=== PATIENT | female | born 1995 | race Caucasian/White ===

== ENCOUNTER 2025-01-30 19:49 | Inpatient (IN) | payer MEDICAID ==
[~2025-01-30] VITALS: Ht 165.1 cm; Wt 38.3 kg
--- NOTE | 2025-01-30 20:42 | ELECTROCARDIOGRAPH REPORT ---
[facility] Test Date: 2025-01-30 Test Time: 20:40:44 Pat Name: DAPHNE RICHEY Department: [facility]- Room: [place] [id number] Gender: F Allopathic Doctor: : 1995 Requested By: GERARDO TIAN Order Number: [id number] Reading MD: Dr. Tyron Barrett Measurements Intervals [place] Rate: 110 P: 79 AL: 106 QRS: 84 QRSD: 78 T: 32 QT: 292 QTc: 396 Interpretive Statements Sinus tachycardia Ventricular premature complex Aberrant complex Electronically Signed On 02-02-2025 9:29:[address] Tyron Barrett Please click the below link to view image of tracing.
--- NOTE | 2025-01-30 20:48 | Physician Documentation ---
History of Present Illness ~ Chief Complaint: Bloody Stools Stated Complaint: ABD PAIN Time Seen by MD: 20:15 OK to notify your PCP?: Yes Source: patient Mode of Arrival: POV Exam Limitations: no limitations HPI Heather is a 29-year-old female presenting to our emergency department for history of bright red bloody diarrhea for the past two weeks. She moved back from [facility] 3 weeks ago which she was living there for the past year, She received a colonoscopy two months ago that showed and a e-coli infection for which she was hospitalized and given IV antibiotics for. She states was told she is anemic and was doing iron infusions while in [facility]. She was seen five or six days ago by Martha Plascencia for her same symptoms and was given saline infusion. She states that she has been having high amount of anxiety after being with her mother for the past two weeks and believes that her high heart rate and rectal bleeding is due to the anxiety and colon inflammation. She is requesting steroid to help heal her colon. She has a history of hemorrhoids but states this feels different. She also has a history of ulcerative colitis and Crohn's disease since 2nd grade but has been managing with diet only. LMP 7 months ago. Medication Reconciliation Allergies: Coded Allergies: No Known Drug Allergies (Verified Allergy, Unknown, 01/31/25) codeine (Verified Adverse Reaction, Intermediate, nausea, 01/31/25) Scheduled Cyclobenzaprine* (Cyclobenzaprine*), 1 TAB PO HS, (Reported) Miscellaneous Medications Lorazepam (Ativan), (Reported) Physical Exam Vital Signs: Temperature: 100.0, Source: Oral, Heart Rate: 145, Respiratory Rate: 14, BP: 105/72, Pulse Oximetry: 97, Weight: 38.300 Oxygen Flow Rate: 0 General Appearance: alert, WD/WN, no apparent distress Respiratory: lungs clear Chest: no accessory muscle use Cardiology Exam: regular rate, rhythm, no gallop, no murmur Gastrointestinal: bowels sounds present, tenderness (RLQ and LLQ) Rectal: deferred Neurologic: oriented x4 Psychiatric: normal mood/affect Skin: normal color, warm/dry Progress Results/Orders Reviewed/noted all lab results: Yes Results/Orders Orders - ALEX TIAN Culture Blood (01/30/25 20:34) Ct Abdomen Pelvis (01/30/25 22:45) Cult Stool (Enteric Pathogens) (01/30/25 20:34) Cult Urine + [place] Ct (01/30/25 22:37) Wrights Stain For Stool Wbcs (01/30/25 20:34) Completed Orders - ALEX TIAN Electrocardiogram (01/30/25 20:34) Cbc/Diff (01/30/25 20:34) MG (01/30/25 20:34) Hcg, Ur Ql (01/30/25 20:34) Ct Abdomen Pelvis (01/30/25 22:45) Procalcitonin (01/30/25 20:34) Lacticsepsis (01/30/25 20:34) Normal Saline 1000ml (Sodium Chloride 10 (01/30/25 20:35) Acetaminophen 1,000mg/100ml Iv (Ofirmev (01/30/25 20:35) CMP (01/30/25 20:34) C Diff Toxin (01/30/25 20:34) Hcg Serum Qt (01/30/25 21:00) Iohexol 300mg/Ml 100ml Inj. (Omnipaque-3 (01/30/25 22:24) Ua W/Microscopic, Cult If Ind (01/30/25 21:50) Vital Signs 01/30/25 01/30/25 01/30/25 01/30/25 19:52 20:09 21:06 21:08 Temp 100.0 100.0 100.0 Pulse 148 145 115 Resp 16 14 14 14 B/P (MAP) 108/70 105/72 (83) 106/61 (76) Pulse Ox 99 97 97 O2 Flow Rate 0 0 0 01/30/25 01/30/25 22:07 23:33 Temp 100.0 100.0 Pulse 96 96 Resp 14 14 B/P (MAP) 99/6 (37) 103/73 (83) Pulse Ox 97 97 O2 Flow Rate 0 0 Laboratory Tests Test 01/30/25 21:00 01/30/25 21:50 White Blood Count 15.1 H Red Blood Count 4.59 Hemoglobin 10.5 L Hematocrit 32.6 L Mean Corpuscular Volume 70.9 L Mean Corpuscular Hemoglobin 22.8 L Mean Corpuscular Hemoglobin Concent 32.1 L Red Cell Distribution Width 20.2 H Platelet Count 759 H Mean Platelet Volume 7.0 L Neutrophils (%) (Auto) 74.1 Lymphocytes (%) (Auto) 17.6 L Monocytes (%) (Auto) 6.9 Eosinophils (%) (Auto) 0.6 Basophils (%) (Auto) 0.8 Neutrophils # (Auto) 11.2 H Lymphocytes # (Auto) 2.7 Monocytes # (Auto) 1.1 H Eosinophils # (Auto) 0.1 Basophils # (Auto) 0.1 CBC Comment Platelet Estimate Increased Red Blood Cell Morphology Perf Basophilic Stippling Anisocytosis 2+ Microcytosis 1+ Sodium Level 138 Potassium Level 3.4 L Chloride Level 100 Carbon Dioxide Level 24.5 Anion Gap 14 Blood Urea Nitrogen 6 L Creatinine 0.58 Estimated GFR/1.73 m2 > 90 BUN/Creatinine Ratio 10.3 Glucose Level 115 H Lactic Acid Level 1.2 Calcium Level 8.3 L Magnesium Level 1.9 Total Bilirubin 0.3 Aspartate Amino Transf (AST/SGOT) 15 Alanine Aminotransferase (ALT/SGPT) 10 L Alkaline Phosphatase 118 H Total Protein 7.0 Albumin 2.3 L Globulin 4.7 H Albumin/Globulin Ratio 0.5 L Procalcitonin 0.06 HCG Beta Subunit < 1.0 Chemistry Comments Urine Specimen Description Cln catch midstream Urine Color Yellow Urine Clarity Clear Urine pH 6.0 Urine Specific [place] 1.010 Urine Protein Negative Urine Glucose (UA) Negative Urine Ketones Trace H Urine Occult Blood Trace-intact Urine Nitrite Negative Urine Bilirubin Negative Urine Urobilinogen 0.2 Urine Leukocyte Esterase Moderate H Urine RBC None seen Urine WBC 20-30 H Urine Squamous Epithelial Cells Few Urine Bacteria 1+ Urine Mucus Few Urine Culture Indicated Indicated Volume Urine Centrifuged 10 ml Urine HCG, Qualitative Negative Urine Comment Microbiology Date/Time Source Procedure Growth Status 01/30/25 22:37 Urine Clean Catch Midstream Urine Culture - Preliminary Culture received. Resulted 01/30/25 21:59 Blood Arm Left Blood Culture - Preliminary NEGATIVE (LESS THAN 24 HOURS) Resulted EKG/XRAY/CT/US/VASC/MRI EKG : Intepreting Monitor?: Yes Additional Comment Twelve lead EKG interpreted by me: Sinus tachycardia, rate 110. no ST- elevation, no axis deviation, no pre-excitation. OTc 396. Medical Decision Making Findings This is a 29-year-old female presenting to our emergency department for rectal bleeding of bright red diarrhea x2 weeks. Her labs are negative for electrolyte imbalance, severe blood loss, kidney dysfunction or liver dysfunction. Her CBC demonstrates leukocytosis of unknown origin at this time and mild iron- deficiency anemia. Her CT scan is pending. Her UA is positive for a UTI. The patient was pending a CT abdomen and pelvis with IV contrast. I am going off duty and endorsed the patient over to Dr. Raven Estes Diff Dx GI Bleed:Consideration: Include: Blood loss anemia, Diverticulosis, Diverticulitis, Gastritis, Inflammatory BD Additional Comments ulcerative colitis, crohns disease. Departure Time of Disposition: 00:44 Disposition: ADMITTED INPATIENT Admitted to Inpatient Unit: yes, to hospitalist Admission Level of Care: PCU with Tele Impression: Primary Impression: Hemorrhagic colitis Additional Impressions: UTI (urinary tract infection) Qualified Codes: N39.0 - Urinary tract infection, site not specified Inflammatory bowel disease Liver mass Condition: Stable Referrals: NO PRIMARY CARE PROVIDER (PCP) Additional Comment Additional Comment Pt signed out to me at 12:[address] result became available. Abx and pain medication ordered. Covered for C diff colitis given pseudomembranous appearance on CT -- will need G(-) coverage for UTI as well, and potentially broader coverage for possible bacterial colitis, although IBD flare more likely. Had already received IVF resuscitation. Hospitalist service paged for admission and immediately wrote admitting orders and came to see patient. Pt to be seen by her Hospitalist attending as well, who is from the critical care service. Harris Estes MD Signature Scribe Signature: no scribe Attestation: The note accurately reflects work and decisions made by me.Alex CALDWELL 01/31/25 18:33 JEOVANNY PLUNKETT Jan 30, 2025 20:48 RAVEN ESTES MD Jan 31, 2025 00:49 ALEX TIAN Jan 31, 2025 18:33
[2025-01-30] MEDS: acetaminophen 1,000mg/100ml IV 100 ML IV ONE (21:02)
[2025-01-30] MEDS: normal saline 1000ml 1,000 ML IV ONE (21:02)
[2025-01-30 21:27] LABS: BASOPHILS # (AUTO) 0.1 X10'3 (0-0.2); BASOPHILS % (AUTO) 0.8 % (0-1); EOSINOPHILS # (AUTO) 0.1 X10'3 (0-0.9); HEMOGLOBIN 10.5 g/dl (12.0-16.0)
[2025-01-30 21:28] LABS: EOSINOPHILS % (AUTO) 0.6 % (0-6); HEMATOCRIT 32.6 % (35.0-45.0); LYMPHOCYTES # (AUTO) 2.7 X10'3 (1.1-4.8); LYMPHOCYTES % (AUTO) 17.6 % (21-51); MEAN CORPUSCULAR HEMOGLOBIN 22.8 PG (27.0-31.0); MEAN CORPUSCULAR HGB CONC 32.1 g/dL (33.0-36.5); MEAN CORPUSCULAR VOLUME 70.9 FL (78-98); MONOCYTES # (AUTO) 1.1 X10'3 (0-0.9); MONOCYTES % (AUTO) 6.9 % (2-12); NEUTROPHILS # (AUTO) 11.2 X10'3 (1.8-7.7); NEUTROPHILS % (AUTO) 74.1 % (42-75); PLATELET COUNT 759 X10'3 (140-440); RED BLOOD COUNT 4.59 X10'6 (4.20-5.60); RED CELL DISTRIBUTION WIDTH 20.2 % (11.5-14.5); WHITE BLOOD COUNT 15.1 X10'3 (4.5-11.0)
[2025-01-30 21:37] LABS: ALANINE AMINOTRANSFERASE 10 U/L (12-78); ALBUMIN 2.3 G/DL (3.4-5.0); ALBUMIN/GLOBULIN RATIO 0.5 (1.1-1.5); ALKALINE PHOSPHATASE 118 IU/L (46-116); ANION GAP 14 (8-16); ASPARTATE AMINO TRANSFERASE 15 U/L (10-37); BILIRUBIN,TOTAL 0.3 MG/DL (0.1-1.0); BLOOD UREA NITROGEN 6 MG/DL (7-18); BUN/CREATININE RATIO 10.3 (10.0-20.0); CALCIUM 8.3 MG/DL (8.5-10.1); CHLORIDE 100 MMOL/L (99-107); CREATININE 0.58 MG/DL (0.40-0.90); GLUCOSE 115 MG/DL (70-104); MAGNESIUM 1.9 MG/DL (1.5-2.4); SODIUM 138 MMOL/L (135-145); TOTAL CARBON DIOXIDE 24.5 MMOL/L (24-32); eCRCL 86 ML/MIN; eGFR > 90 ML/MIN
[2025-01-30 21:41] LABS: POTASSIUM 3.4 MMOL/L (3.5-5.1)
[2025-01-30 21:49] LABS: PLATELET ESTIMATE INCREASED
[2025-01-30 21:50] LABS: MICROCYTOSIS 1+
[2025-01-30 21:52] LABS: ANISOCYTOSIS 2+
[2025-01-30 22:17] LABS: URINE HCG NEGATIVE (NEG)
[2025-01-30] MEDS ORDERED: iohexol 300mg/ml 100ml inj. ONE (22:24)
[2025-01-30 22:27] LABS: BILIRUBIN,URINE NEGATIVE (Neg); CLARITY,URINE CLEAR (Clear); COLOR,URINE YELLOW (Yellow); GLUCOSE, URINE NEGATIVE (Neg); KETONES,URINE TRACE mg/dl (Neg); LEUKOCYTE ESTERASE ,URINE MODERATE (Neg); NITRITES, URINE NEGATIVE (Neg); OCCULT BLOOD,URINE TRACE-INTACT (Neg); PROTEIN,URINE NEGATIVE (Neg); UROBILINOGEN,URINE 0.2 E.U/dL (0.2-1.0)
[2025-01-30 22:28] LABS: UA COLLECTION TYPE CLN CATCH MIDSTREAM
[2025-01-30 22:32] LABS: BETA HCG,QUANTITATIVE < 1.0 mIU/ml
[2025-01-30 22:35] LABS: WBC,URINE 20-30 /HPF (0-4)
[2025-01-30 22:36] LABS: BACTERIA,URINE 1+ /HPF (Neg); MUCUS STRANDS FEW /LPF (Neg); RBC,URINE NONE SEEN /HPF (0-2); SQUAMOUS EPITHELIAL CELL,UR FEW /LPF (FEW)
[2025-01-31] VITALS (8 sets, daily range): BP systolic 91–124; BP diastolic 50–77; PULSE 73–99; RESP 14–18; TEMP 97.6–97.8; O2SAT 95–100
--- NOTE | 2025-01-31 00:22 | RADIOLOGY REPORT ---
Clinical History Sepsis, BLOODY STOOLS X 2 WEEKS, HX OF COLITIS Comparison None Technique: All CT scans at this medical facility are performed using dose modulation techniques as appropriate t o a performed exam including the following: Automated exposure control was utilized; adjustment of th e mA and/or kV according to patient size; and use of iterative reconstruction technique. All CT studies are reported to the Dose Index Registry of the [employer]. Contrast: omni 300 100ml Radiation Dose: CTDI (mGy): 6.23; DLP (mGy-cm): 290.40 DAPHNE RICHEY, [id number] FINDINGS: Lower chest: Unremarkable Liver: 3.7 x 3.2 cm right hepatic lobe mass with peripheral enhancement, correlation with nonemergent triple phase contrast-enhanced CT/MRI is recommended to assess for hemangioma enhancement pattern an d exclude other neoplastic processes. Right hepatic cyst Gallbladder: Unremarkable Pancreas: Unremarkable Spleen: Unremarkable Adrenals:Unremarkable Kidneys: Unremarkable Stomach:Unremarkable Bowel:Evaluation of the bowel is limited and incomplete due to lack of oral contrast. The small tere l is grossly unremarkable. Diffuse mural thickening of the colon with pericolonic edema and strandin g of. Normal appendix Urinary bladder:Unremarkable Reproductive organs:No pelvic masses Peritoneum, retroperitoneum, lymphadenopathy:Unremarkable Vascular structures: Hypodense varices are seen protruding through the anus Abdominal wall:Unremarkable Musculoskeletal:No acute osseous abnormality IMPRESSION: Pancolitis with an appearance suggestive of pseudomembranous colitis, clinical correlation is recomme nded Hypodense varices are seen herniating through the anus This report was electronically signed by Elton Cazares MD on 01/31/2025 12:20:04 AM.
[2025-01-31] MEDS ORDERED: magnesium sulf-water 2g/50mL 50 ML IV PRN (00:50)
[2025-01-31] MEDS ORDERED: magnesium Cl slow-release 64mg tablet PO PRN (00:50)
[2025-01-31] MEDS ORDERED: morphine 2 MG/ML inj. syringe IV PRN (00:50)
[2025-01-31] MEDS ORDERED: mag hydrox/Alum hydrox/simeth 30ml oral suspension PO PRN (00:50)
[2025-01-31] MEDS ORDERED: acetaminophen 650mg rectal suppository RC PRN (00:50)
[2025-01-31] MEDS ORDERED: magnesium hydroxide 30ml (MOM) UD suspension PO PRN (00:50)
[2025-01-31] MEDS ORDERED: potassium Cl 40MEQ/1/2NS 520ml 520 ML IV PRN (00:50)
[2025-01-31] MEDS ORDERED: magnesium sulf-water 4G/100mL 100 ML IV PRN (00:50)
[2025-01-31] MEDS: ondansetron/PF 4mg/2ml inj IV PRN (01:05)
[2025-01-31] MEDS: HYDROcodone/acetaminophen 5mg/325mg tablet PO PRN (01:06)
[2025-01-31] MEDS ORDERED: CYCL-1 PO (01:46)
[2025-01-31] MEDS ORDERED: LORA-269 (01:46)
--- NOTE | 2025-01-31 02:10 | HISTORY AND PHYSICAL-Residence ---
History & Physical Providers to CC Resident Creating Document: LYNN RODRIGUEZ, ALYX ~ History of Present Illness Reason for Admit\Complaint: Bloody diarrhea History of Present Illness This is a 29-year-old female with a history of ulcerative colitis, E coli infection, C diff, Crohn's disease, hemorrhoids presents to the ED chief complaint of diarrhea with bright red stools since the last two weeks. She was about 3-4 episodes of watery bloody mucousy diarrhea and has stopped eating since the last 5-6 days. She also feels dizzy but did not have a syncopal attack or vomiting. She denies any fever but her temperature was 100 F in the ED. Patient mentions that she recently returned from [facility] three weeks ago and has been in a stressful environment living along with her mother in [place]. She underwent colonoscopy in [facility] three months ago and she was treated for ulcerative colitis. She was treated for steroids for six days followed by two weeks of taper, UC flare has been completely resolved and she has been doing pain until she [place] the [place] ago. She was tried on rheumera(methotrexate), Cimzia( certolizumab), Remicade( infliximab) in the past for ulcerative colitis which has not helped and she was not willing to take them again now. She was unsure about the number of flares of UC per year but her last flare was three months ago in [facility]. She was diagnosed with ulcerative colitis and Crohn's disease in 4th grade. She has a GI doctor and [facility] was name is Jarett Gómez and she saw him one and half year ago. She mentions that her mother is evil and the food she eats is poisoned. She currently does not take any medications. She denies any recent antibiotic use but mentions that she was got C diff in the past after taking antibiotics. She did not comment about any burning in the micturition or increased frequency. She also mentions that she has been resuscitated twice in the past and had history of E coli infection one and half year ago. Allergies: Coded Allergies: codeine (Verified Allergy, Intermediate, nausea, 01/30/25) Home Medications Home Medications Active Reported Cyclobenzaprine* (Cyclobenzaprine HCl) 10 Mg Tablet 1 Tab PO HS Ativan (Lorazepam) 1 Mg Tablet Past Medical History Past Medical History Ulcerative colitis, E coli infection, C diff, Crohn's disease, hemorrhoids Past Surgical History Surgical History Comment None Past Social History Social History Comment Smokes marijuana but denies any tobacco, alcohol, drug use ROS ROS Reviewed and negative except for the pertinent positives in HPI Exam Vitals: Vital Signs Date Time Temp Pulse Resp B/P (MAP) Pulse Ox O2 Delivery O2 Flow Rate FiO2 01/30/25 23:33 100.0 96 14 103/73 (83) 97 0 General: General: well developed, well nourished. Awake , alert, and oriented x4, resting comfortably in the bed, in no acute distress . HEENT: Atraumatic, normocephalic, EOMI, anicteric sclera B; pink conjunctiva; PERRLA, normal oropharynx, moist oral and nasal mucosa. Tympanic membrane , nose , throat clear. Neck: Trachea midline. Supple, full range of motion, no JVD, bruit , hepatojugular reflex , lymphadenopathy or masses, or other lesions Cardiac: Regular rhythm, regular rate no murmurs, rubs, or gallops. Normal S1 and S2, no S3 noticed. PMI is normal. Respiratory: Equal breath sounds bilaterally, no tachypnea; lungs clear to auscultation bilaterally, no wheezing ,rub or rales, or crackles. Chest wall is symmetric and without deformity. No signs of trauma. Chest wall is nontender. No signs of respiratory distress. Resonance is normal upon percussion bilaterally. Gastrointestinal: Abdomen symmetric, non-distended, soft, tender to palpation in the lower abdominal quadrants, normal bowel sounds x4 quadrant, normoactive, no hepatosplenomegaly , no masses , no bruit, no flank pain bilaterally. No voluntary guarding, rebound, or rigidity. No tenderness to percussion. No pulsatile masses. Equal femoral pulses. No Jiménez's sign or McBurney point tenderness. Back; no CVA tenderness bilaterally, no deformities. Neck and back are without deformity as well. No tenderness noted on palpation of the spinous processes. Spinous processes are midline. Cervical, thoracic, and lumbar paraspinal muscles are not tender and are without spasm. : normal external genitalia, without lesions, swelling, masses or tenderness. Musculoskeletal: Extremities, normal range of motion, non-tender, muscle strength 5/5 x 4. Negative Homans signs bilaterally on lower extremity. Distal pulses full symmetrical, no clubbing, cyanosis , edema. Neurological: Speech is clear, alert, and oriented x 4. No motor or sensory deficit, deep tendon reflexes normal, cerebellar intact. Cranial nerves II-XII intact. Psych: Alert and or appropriate, normal affect. Vascular: Good distal pulses, which are equal x4; capillary refill less than 2 seconds. Skin: Warm, dry, no pallor, no rash or petechiae. Diagnostic Data Last Recorded Lab Results: 01/30/25209901/30/252099 Diagnostic Data: Laboratory Tests Test 01/31/25 01:48 Coagulation Comments Advance Care Planning Advanced Care plannin - 30 Minutes (I spent a total of 17 minutes on reviewing various resuscitative measures/ ACP with the patient at the time of admission. The patient has decided on a full code status) Additional Plan Bloody diarrhea possible secondary to ulcerative colitis flare Jose colitis with pseudomembranous colitis C diff can not be ruled out Anal varices History of E coli infection Hepatic cyst, can not rule out hemangioma Moderate protein calorie malnutrition Patient presents to the ED with bloody diarrhea. She also has fever with a temperature of 100, blood pressure is soft around 100/70 mmHg and she was tachycardic with heart rate of 148 at admission. She received Tylenol in 1 L NS bolus. Laboratory data was significant [place] [address], hemoglobin of 10.5 and MCV of 70.9, thrombocytosis with platelet count of 759 K. monitor H&H Q 8 hours. Her lactic acid was normal but her procalcitonin was psych elevated at 0.06 and ALP slightly elevated at 118 she also has an albumin of 2.3 and BMI of 14.1. CT of the abdomen shows 3.7 x 3.2 cm right hepatic lobe mass with peripheral enhancement, correlation with nonemergent triple phase contrast-enhanced CT/MRI is recommended to assess for hemangioma enhancement pattern and exclude other neoplastic processes. Right hepatic cyst. Evaluation of the bowel is limited and incomplete due to lack of oral contrast. The small bowel is grossly unremarkable. Diffuse mural thickening of the colon with pericolonic edema and stranding of. Hypodense varices are seen protruding through the anus. Pancolitis with an appearance suggestive of pseudomembranous colitis, clinical correlation is recommended. GI consult in the a.m. for further recommendations and possible colonoscopy. NPO for now as the patient does not want to eat food for now. One dose of oral fidaxomicin for suspected C diff. stool sample sent for C diff toxin. Follow up and continue vancomycin/fidaxomicin as needed. Involve ID doctor if needed. CRP and fecal calprotectin are also ordered to confirm UC flare. Stool ova, parasites and cultures to rule out other causes of bloody diarrhea. Follow-up. Started on oral mesalamine, rectal mesalamine and rectal hydrocortisone suppositories. One dose of oral prednisone 20 mg given. Continue fluids NS at the rate of 100 mL/hour. Taper oral prednisone at discharge based on GI recommendations. UA shows 20-30 WBC with moderate high leukocyte esterase. Not starting on any antibiotics in the view of suspected C diff as of now. Code Status: Full code DVT Prophylaxis: Subcutaneous heparin Analgesia/Sedation: [place], morphine p.r.n. Lines/Tubes: PIV Gi Prophylaxis: None Nutrition: NPO for now PT: Yes Prognosis: Guarded Disposition: Admit to PCU. 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 Attestation of HP only, care immediately directed to hospitalist team 1: Diarrhea 2: hx UC possible UC flair - Steroids, all she will take. - Stool O&P, Cdiff - Needs maintance medication (mesalamine vs juan antonio - Kiersten for dvt proph Patient seen through remote audiovisual assessment through HIPAA compliant setup. All labs, flowsheets, and images reviewed. Alem Butler DO Date of Service: Jan 31, 2025 Billing Provider: ALEM BUTLER Jr., DEEPIKA BANDI, RES Jan 31, 2025 02:10 ALEM BUTLER Jr., DO Jan 31, 2025 04:07
[2025-01-31 02:11] LABS: APTT 30 SECONDS (22-32); INR 1.1 INR; PROTHROMBIN TIME 11.4 SECONDS (9.0-12.0)
[2025-01-31] MEDS: mesalamine 1.2gm ER tablet PO SCH (02:11)
[2025-01-31] MEDS: hydrocortisone acetate 25mg rectal suppository RC SCH (02:12)
[2025-01-31 02:20] LABS: MAGNESIUM 1.8 MG/DL (1.5-2.4); POTASSIUM 3.4 MMOL/L (3.5-5.1)
[2025-01-31] MEDS: mesalamine 1000mg rectal suppository RC SCH (02:30)
[2025-01-31] MEDS: predniSONE 20 mg tablet PO ONE (02:48)
[2025-01-31] MEDS: normal saline 1000ml 1,000 ML IV SCH (02:49)
[2025-01-31] MEDS: LORazepam 1 MG tablet PO PRN (03:33)
[2025-01-31] MEDS: metoclopramide 5 mg/ml inj IV PRN (03:33)
[2025-01-31] MEDS: docusate sod 100mg capsule PO SCH (08:00)
[2025-01-31] MEDS: K and/or MAG REPLACEMENT MC SCH (08:00)
[2025-01-31] MEDS: predniSONE 20 mg tablet PO SCH (08:40)
[2025-01-31] MEDS: potassium Cl 20 mEq SR tablet PO PRN (08:41)
[2025-01-31 09:37] LABS: C DIFF ANTIGEN NEGATIVE (NEGATIVE); C DIFF SPECIMEN=DIARRHEA? ACCEPTABLE; C DIFFICILE TOXINS A&B NEGATIVE (Neg)
[2025-01-31] MEDS: HYDROmorphone inj. 0.5 MG/0.5 ML DISP.SYRIN IV PRN (11:23)
--- NOTE | 2025-01-31 11:40 | PROGRESS NOTE ---
Clinical Note Clinical Note Progress Note: Patient came in with 2 week mucous diarrhea after being diagnosed with UC in [facility] where she underwent colonoscopy and treated with steroid and mesalamine. C.diff resulted negative and started on empirical Zosyn for pancolitis and UTI. Spoke to GI Dr. Menchaca who recommends continue IVF and to await stool culture and to consider discontinuing abx if E. coli results positive, then contraindicated. Also recommends discontinuing steroid for now. Pending stool culture. Diagnosis # Pancolitis # UTI # Sepsis 2/2 pancolitis and UTI - POA bolus IVF and Zosyn today, await stool culture # Microcytic anemia - follow ferritin # Hypokalemia # Hx UC- continue mesalamine, hold steroid per GI recommendation # Hx E.coli # Hx C.diff MARCIA NEWTON PREPARING BOX TENDER Jan 31, 2025 11:40
[2025-01-31] MEDS: normal saline 1000ml 1,000 ML IV ONE ×2 (12:34→14:57)
[2025-01-31 14:52] LABS: URINE AMPHETAMINE SCREEN NEGATIVE (Neg); URINE BARBITUATE SCREEN NEGATIVE (Neg); URINE BENZODIAZEPINES SCREEN NEGATIVE (Neg); URINE CANNABINOID SCREEN POSITIVE (Neg); URINE COCAINE SCREEN NEGATIVE (Neg); URINE METHADONE SCREEN NEGATIVE (Neg); URINE OPIATE SCREEN POSITIVE (Neg); URINE PHENCYCLIDINE SCREEN NEGATIVE (Neg)
[2025-01-31] MEDS: LORazepam 1 MG tablet PO ONE (18:02)
[2025-02-01] MEDS: LORazepam 1 MG tablet PO PRN ×2 (07:30→21:54)
[2025-02-01 08:00] VITALS: RESP 16; O2SAT 98
[2025-02-01 09:05] LABS: BASOPHILS % (AUTO) 0.5 % (0-1); EOSINOPHILS # (AUTO) 0.1 X10'3 (0-0.9); EOSINOPHILS % (AUTO) 1.2 % (0-6); HEMOGLOBIN 9.6 g/dl (12.0-16.0); LYMPHOCYTES # (AUTO) 2.1 X10'3 (1.1-4.8); LYMPHOCYTES % (AUTO) 21.2 % (21-51); MEAN CORPUSCULAR HEMOGLOBIN 23.1 PG (27.0-31.0); MEAN CORPUSCULAR VOLUME 72.2 FL (78-98); MEAN PLATELET VOLUME 6.9 FL (7.4-10.4); MONOCYTES # (AUTO) 0.7 X10'3 (0-0.9); MONOCYTES % (AUTO) 7.4 % (2-12); NEUTROPHILS % (AUTO) 69.7 % (42-75); PLATELET COUNT 700 X10'3 (140-440); RED BLOOD COUNT 4.15 X10'6 (4.20-5.60); RED CELL DISTRIBUTION WIDTH 19.8 % (11.5-14.5)
[2025-02-01 09:18] LABS: ALANINE AMINOTRANSFERASE 15 U/L (12-78); ALBUMIN 2.1 G/DL (3.4-5.0); ALBUMIN/GLOBULIN RATIO 0.5 (1.1-1.5); ALKALINE PHOSPHATASE 99 IU/L (46-116); ANION GAP 7 (8-16); ASPARTATE AMINO TRANSFERASE 7 U/L (10-37); BILIRUBIN,TOTAL 0.2 MG/DL (0.1-1.0); BLOOD UREA NITROGEN 2 MG/DL (7-18); BUN/CREATININE RATIO 3.4 (10.0-20.0); CALCIUM 8.3 MG/DL (8.5-10.1); CHLORIDE 109 MMOL/L (99-107); CREATININE 0.58 MG/DL (0.40-0.90); GLUCOSE 68 MG/DL (70-104); MAGNESIUM 1.7 MG/DL (1.5-2.4); POTASSIUM 3.7 MMOL/L (3.5-5.1); SODIUM 142 MMOL/L (135-145); TOTAL CARBON DIOXIDE 25.7 MMOL/L (24-32); TOTAL PROTEIN 6.2 G/DL (6.4-8.2); eCRCL 86 ML/MIN; eGFR > 90 ML/MIN
[2025-02-01 10:00] VITALS: BP 110/67; PULSE 90; RESP 14; TEMP 98.5; O2SAT 97
[2025-02-01 10:40] LABS: ANISOCYTOSIS 3+; MICROCYTOSIS 1+; PLATELET ESTIMATE INCREASED
[2025-02-01 10:42] LABS: ELLIPTOCYTES 1+
[2025-02-01] MEDS: dextrose 50%-water 50ml dispensing syringe IV ONE ×3 (15:17→21:56)
--- NOTE | 2025-02-01 17:21 | PROGRESS NOTE ---
Daily Progress Note Providers to CC ~ chief complaint, abdominal pain still continue, respond to Dilaudid Central Line/PICC still needed: No James-Non Protocol James Indications Met/Not Met: F/C Indications Not Met Antibiotic Timeout Antibiotic Ordered?: Yes MRSA Education MRSA Education Provided to pt: Yes Subjective As above Objective Vital Signs Date Time Temp Pulse Resp B/P (MAP) Pulse Ox O2 Delivery O2 Flow Rate FiO2 02/01/25 14:12 15 02/01/25 10:00 98.5 90 110/67 (81) 97 Room Air 01/31/25 01:19 0 Vital signs, stable ,afebrile. Pulse Oximetry reflects adequate oxygenation. BMI is General: well developed, well nourished. Awake , alert, and oriented x4, resting comfortably in the bed, in no acute distress . Skin: Warm, dry, no pallor, no rash or petechiae. HEENT: Atraumatic, normocephalic, EOMI, anicteric sclera B; pink conjunctiva; PERRLA, normal oropharynx, moist oral and nasal mucosa. Tympanic membrane , nose , throat clear. Neck: Trachea midline. Supple, full range of motion, no JVD, bruit , hepatojugular reflex , lymphadenopathy or masses, or other lesions Cardiac: Regular rhythm, regular rate no murmurs, rubs, or gallops. Normal S1 and S2, no S3 noticed. PMI is normal. Respiratory: Equal breath sounds bilaterally, no tachypnea; lungs clear to auscultation bilaterally, no wheezing ,rub or rales, or crackles. Chest wall is symmetric and without deformity. No signs of trauma. Chest wall is nontender. No signs of respiratory distress. Resonance is normal upon percussion bilaterally. Gastrointestinal: Abdomen symmetric, non-distended, soft, mildly tender to palpation infraumbilically, normal bowel sounds x4 quadrant, normoactive, no hepatosplenomegaly , no masses , no bruit, no flank pain bilaterally. No voluntary guarding, rebound, or rigidity. No tenderness to percussion. No pulsatile masses. Equal femoral pulses. No Jiménez's sign or McBurney point tenderness. Back; no CVA tenderness bilaterally, no deformities. Neck and back are without deformity as well. No tenderness noted on palpation of the spinous processes. Spinous processes are midline. Cervical, thoracic, and lumbar paraspinal muscles are not tender and are without spasm. Musculoskeletal: Extremities, normal range of motion, non-tender, muscle strength 5/5 x 4. Negative Homans signs bilaterally on lower extremity. Distal pulses full symmetrical, no clubbing, cyanosis , edema. Neurological: Speech is clear, alert, and oriented x 4. No motor or sensory deficit, deep tendon reflexes normal, cerebellar intact. Cranial nerves II-XII intact. Psych: Alert and or appropriate, normal affect. Vascular: Good distal pulses, which are equal x4; capillary refill less than 2 seconds. Lymphatic, no lymphadenopathy. Result Diagram: 02/01/25 0836 02/01/25 0836 Coagulation Studies Laboratory Tests Test 01/31/25 01:48 Prothrombin Time 11.4 SECONDS (9.0-12.0) INR International Normalized Ratio 1.1 INR Activated Partial Thromboplast Time 30 SECONDS (22-32) Coagulation Comments Problem\Assessment\Plan Assessment/plan Patient came in with 2 week mucous diarrhea after being diagnosed with UC in [facility] where she underwent colonoscopy and treated with steroid and mesalamine. C.diff resulted negative and started on empirical Zosyn for pancolitis and UTI. Spoke to GI Dr. Menchaca who recommends continue IVF and to await stool culture and to consider discontinuing abx if E. coli results positive, then contraindicated. Also recommends discontinuing steroid for now. Pending stool culture. Diagnosis # Pancolitis # UTI # Sepsis 2/2 pancolitis and UTI - POA bolus IVF and Zosyn today, await stool culture # Microcytic anemia - follow ferritin # Hypokalemia # Hx UC- continue mesalamine, hold steroid per GI recommendation # Hx E.coli # Hx C.diff DVT gastropathy prophylaxis addressed Sepsis Screening Reassessment Date: Feb 01, 2025 Date of Service: Feb 01, 2025 Billing Provider: SONI MARROQUIN MD Common Visit Codes: [id number] INP/OBS CARE(HIGH) SONI MARROQUIN MD Feb 01, 2025 17:21
[2025-02-01 18:00] VITALS: BP 96/63; PULSE 107; RESP 12; TEMP 98.2; O2SAT 99
[2025-02-01 19:00] VITALS: RESP 18; O2SAT 100
[2025-02-01] MEDS: cyclobenzaprine 10mg tablet PO SCH (20:40)
[2025-02-01] MEDS ORDERED: sodium chloride inj. 154 MEQ in Dextrose 10%-water IV solution 961.5 ML IV SCH (21:50)
[2025-02-01 22:00] VITALS: BP 119/70; PULSE 110; RESP 16; TEMP 98.9; O2SAT 98
[2025-02-01] MEDS: Dextrose 10%-water IV solution 1,000 ML IV SCH (23:00)
[2025-02-02] VITALS (9 sets, daily range): BP systolic 94–120; BP diastolic 49–72; PULSE 82–130; RESP 16–19; TEMP 97.7–100.7; O2SAT 99–100
[2025-02-02 05:30] LABS: EOSINOPHILS # (AUTO) 0.1 X10'3 (0-0.9); LYMPHOCYTES # (AUTO) 1.9 X10'3 (1.1-4.8); MONOCYTES # (AUTO) 0.9 X10'3 (0-0.9)
[2025-02-02 05:33] LABS: BASOPHILS % (AUTO) 0.4 % (0-1); HEMATOCRIT 28.9 % (35.0-45.0); HEMOGLOBIN 9.6 g/dl (12.0-16.0); LYMPHOCYTES % (AUTO) 19.7 % (21-51); MEAN CORPUSCULAR HEMOGLOBIN 23.4 PG (27.0-31.0); MEAN CORPUSCULAR HGB CONC 33.2 g/dL (33.0-36.5); MEAN CORPUSCULAR VOLUME 70.6 FL (78-98); MEAN PLATELET VOLUME 6.5 FL (7.4-10.4); MONOCYTES % (AUTO) 8.9 % (2-12); NEUTROPHILS # (AUTO) 6.8 X10'3 (1.8-7.7); PLATELET COUNT 704 X10'3 (140-440); RED CELL DISTRIBUTION WIDTH 19.3 % (11.5-14.5); WHITE BLOOD COUNT 9.8 X10'3 (4.5-11.0)
[2025-02-02 05:44] LABS: ALANINE AMINOTRANSFERASE 13 U/L (12-78); ALBUMIN 1.9 G/DL (3.4-5.0); ALBUMIN/GLOBULIN RATIO 0.5 (1.1-1.5); ALKALINE PHOSPHATASE 98 IU/L (46-116); ANION GAP 7 (8-16); ASPARTATE AMINO TRANSFERASE 7 U/L (10-37); BILIRUBIN,TOTAL 0.2 MG/DL (0.1-1.0); BLOOD UREA NITROGEN 1 MG/DL (7-18); BUN/CREATININE RATIO 1.8 (10.0-20.0); CHLORIDE 105 MMOL/L (99-107); CREATININE 0.56 MG/DL (0.40-0.90); GLUCOSE 109 MG/DL (70-104); MAGNESIUM 1.6 MG/DL (1.5-2.4); SODIUM 141 MMOL/L (135-145); TOTAL CARBON DIOXIDE 29.5 MMOL/L (24-32); TOTAL PROTEIN 5.9 G/DL (6.4-8.2); eCRCL 89 ML/MIN; eGFR > 90 ML/MIN
[2025-02-02 06:06] LABS: POTASSIUM 2.9 MMOL/L (3.5-5.1)
[2025-02-02] MEDS: potassium Cl 20 mEq SR tablet PO PRN (07:52)
[2025-02-02] MEDS ORDERED: vancomycin 125 MG/5 ML UD oral SOLN.RECON 5mL oral syringe (FIRVANQ) PO SCH (14:00)
--- NOTE | 2025-02-02 15:32 | RADIOLOGY REPORT ---
CHEST RADIOGRAPH Indication: cp Technique: Single frontal view of the chest was obtained COMPARISON: None FINDINGS: Lines and Tubes: None Lungs: Clear Pleura: No effusion. No pneumothorax. Cardiomediastinal contours: Unremarkable Bones: Unremarkable IMPRESSION: 1. No acute disease.
[2025-02-02 16:16] LABS: OSMOLALITY 285 MOSM/K (280-300)
[2025-02-02] MEDS: albumin (human) 25% 100 ML IV solution IV ONE (16:22)
[2025-02-02 16:34] LABS: CREATINE KINASE 19 U/L (26-192); LIPASE 14 U/L (16-77); PHOSPHORUS 3.3 MG/DL (2.3-4.5); THYROID STIMULATING HORMONE 0.35 ulU/ml (0.34-4.50)
--- NOTE | 2025-02-02 16:36 | PROGRESS NOTE ---
Daily Progress Note Providers to CC ~ no new complaint today resting comfortably in the bed Central Line/PICC still needed: No James-Non Protocol James Indications Met/Not Met: F/C Indications Not Met Antibiotic Timeout Antibiotic Ordered?: Yes MRSA Education MRSA Education Provided to pt: Yes Subjective As above Objective Vital Signs Date Time Temp Pulse Resp B/P (MAP) Pulse Ox O2 Delivery O2 Flow Rate FiO2 02/02/25 15:00 16 02/02/25 14:51 100 Room Air 02/02/25 14:38 97.7 130 96/62 (73) 01/31/25 01:19 0 Vital signs, stable ,afebrile. Tachycardic, Pulse Oximetry reflects adequate oxygenation. General: well developed, well nourished. Awake , alert, and oriented x4, resting comfortably in the bed, in no acute distress . Skin: Warm, dry, no pallor, no rash or petechiae. HEENT: Atraumatic, normocephalic, EOMI, anicteric sclera B; pink conjunctiva; PERRLA, normal oropharynx, moist oral and nasal mucosa. Tympanic membrane , nose , throat clear. Neck: Trachea midline. Supple, full range of motion, no JVD, bruit , hepatojugular reflex , lymphadenopathy or masses, or other lesions Cardiac: Regular rhythm, regular rate no murmurs, rubs, or gallops. Normal S1 and S2, no S3 noticed. PMI is normal. Respiratory: Equal breath sounds bilaterally, no tachypnea; lungs clear to auscultation bilaterally, no wheezing ,rub or rales, or crackles. Chest wall is symmetric and without deformity. No signs of trauma. Chest wall is nontender. No signs of respiratory distress. Resonance is normal upon percussion bilaterally. Gastrointestinal: Abdomen symmetric, non-distended, soft, tender to palpation mild, infraumbilically, normal bowel sounds x4 quadrant, normoactive, no hepatosplenomegaly , no masses , no bruit, no flank pain bilaterally. No voluntary guarding, rebound, or rigidity. No tenderness to percussion. No pulsatile masses. Equal femoral pulses. No Jiménez's sign or McBurney point tenderness. Back; no CVA tenderness bilaterally, no deformities. Neck and back are without deformity as well. No tenderness noted on palpation of the spinous processes. Spinous processes are midline. Cervical, thoracic, and lumbar paraspinal muscles are not tender and are without spasm. Musculoskeletal: Extremities, normal range of motion, non-tender, muscle strength 5/5 x 4. Negative Homans signs bilaterally on lower extremity. Distal pulses full symmetrical, no clubbing, cyanosis , edema. Neurological: Speech is clear, alert, and oriented x 4. No motor or sensory deficit, deep tendon reflexes normal, cerebellar intact. Cranial nerves II-XII intact. Psych: Alert and or appropriate, normal affect. Vascular: Good distal pulses, which are equal x4; capillary refill less than 2 seconds. Lymphatic, no lymphadenopathy. Result Diagram: 02/02/25 0509 02/02/25 0509 Coagulation Studies Laboratory Tests Test 01/31/25 01:48 Prothrombin Time 11.4 SECONDS (9.0-12.0) INR International Normalized Ratio 1.1 INR Activated Partial Thromboplast Time 30 SECONDS (22-32) Coagulation Comments Problem\Assessment\Plan Assessment/plan Patient came in with 2 week mucous diarrhea after being diagnosed with UC in [place] where she underwent colonoscopy and treated with steroid and mesalamine. C.diff resulted negative and started on empirical Zosyn for pancolitis and UTI. Spoke to GI Dr. Menchaca who recommends continue IVF and to await stool culture and to consider discontinuing abx if E. coli results positive, then contraindicated. Also recommends discontinuing steroid for now. Diagnosis # Pancolitis discontinued vancomycin, Dr. Whitley phone call appreciated # UTI # Sepsis 2/2 pancolitis and UTI - POA bolus IVF and Zosyn today, culture negative # Microcytic anemia - follow ferritin # Hypokalemia, on replacement protocol # Hx UC- continue mesalamine, hold steroid per GI recommendation # Hx E.coli # Hx C.diff, 2019 DVT gastropathy prophylaxis addressed Sepsis Screening Reassessment Date: Feb 02, 2025 Date of Service: Feb 02, 2025 Billing Provider: SONI MARROQUIN MD Common Visit Codes: [id number] INP/OBS CARE(HIGH) SONI MARROQUIN MD Feb 02, 2025 16:36
[2025-02-02] MEDS: normal saline 500ml IV soln 500 ML IV ONE (19:22)
[2025-02-02 20:11] LABS: BILIRUBIN,URINE NEGATIVE (Neg); CLARITY,URINE CLEAR (Clear); COLOR,URINE YELLOW (Yellow); GLUCOSE, URINE NEGATIVE (Neg); KETONES,URINE NEGATIVE (Neg); LEUKOCYTE ESTERASE ,URINE SMALL (Neg); NITRITES, URINE NEGATIVE (Neg); OCCULT BLOOD,URINE NEGATIVE (Neg); PH,URINE 7.5 (4.8-8.0); PROTEIN,URINE NEGATIVE (Neg); UROBILINOGEN,URINE 0.2 E.U/dL (0.2-1.0)
[2025-02-02 20:19] LABS: UA COLLECTION TYPE VOIDED
[2025-02-02 20:20] LABS: BACTERIA,URINE 1+ /HPF (Neg); RBC,URINE 0-2 /HPF (0-2); SQUAMOUS EPITHELIAL CELL,UR FEW /LPF (FEW); WBC CLUMPS,URINE FEW /HPF (NEGATIVE); WBC,URINE 50-100 /HPF (0-4)
[2025-02-03 05:30] LABS: EOSINOPHILS # (AUTO) 0.1 X10'3 (0-0.9); HEMOGLOBIN 9.6 g/dl (12.0-16.0); LYMPHOCYTES # (AUTO) 2.4 X10'3 (1.1-4.8); LYMPHOCYTES % (AUTO) 20.5 % (21-51)
[2025-02-03 05:32] LABS: BASOPHILS % (AUTO) 0.4 % (0-1); EOSINOPHILS % (AUTO) 0.5 % (0-6); HEMATOCRIT 30.2 % (35.0-45.0); MEAN CORPUSCULAR HEMOGLOBIN 22.6 PG (27.0-31.0); MEAN CORPUSCULAR HGB CONC 31.8 g/dL (33.0-36.5); MEAN CORPUSCULAR VOLUME 71.1 FL (78-98); MEAN PLATELET VOLUME 6.9 FL (7.4-10.4); MONOCYTES % (AUTO) 8.8 % (2-12); NEUTROPHILS # (AUTO) 8.3 X10'3 (1.8-7.7); NEUTROPHILS % (AUTO) 69.8 % (42-75); PLATELET COUNT 707 X10'3 (140-440); RED BLOOD COUNT 4.25 X10'6 (4.20-5.60); RED CELL DISTRIBUTION WIDTH 20.1 % (11.5-14.5); WHITE BLOOD COUNT 11.8 X10'3 (4.5-11.0)
[2025-02-03 05:58] LABS: ALANINE AMINOTRANSFERASE 12 U/L (12-78); ALBUMIN 2.3 G/DL (3.4-5.0); ALBUMIN/GLOBULIN RATIO 0.6 (1.1-1.5); ALKALINE PHOSPHATASE 101 IU/L (46-116); ANION GAP 8 (8-16); ASPARTATE AMINO TRANSFERASE 9 U/L (10-37); BILIRUBIN,TOTAL 0.3 MG/DL (0.1-1.0); BLOOD UREA NITROGEN 6 MG/DL (7-18); BUN/CREATININE RATIO 9.7 (10.0-20.0); CALCIUM 8.3 MG/DL (8.5-10.1); CHLORIDE 102 MMOL/L (99-107); CREATININE 0.62 MG/DL (0.40-0.90); GLUCOSE 79 MG/DL (70-104); MAGNESIUM 1.8 MG/DL (1.5-2.4); POTASSIUM 3.8 MMOL/L (3.5-5.1); SODIUM 137 MMOL/L (135-145); TOTAL CARBON DIOXIDE 27.2 MMOL/L (24-32); TOTAL PROTEIN 6.4 G/DL (6.4-8.2); eCRCL 80 ML/MIN; eGFR > 90 ML/MIN
[2025-02-03 06:00] VITALS: BP 93/51; PULSE 102; RESP 13; TEMP 100.3; O2SAT 99
[2025-02-03 06:02] LABS: ANISOCYTOSIS 2+; MICROCYTOSIS 1+; PLATELET ESTIMATE INCREASED
[2025-02-03 06:03] LABS: ELLIPTOCYTES FEW
[2025-02-03 10:00] VITALS: BP 124/62; PULSE 115; RESP 20; TEMP 99.1; O2SAT 100
[2025-02-03] MEDS: hydrocortisone acetate 25mg rectal suppository RC SCH (14:20)
--- NOTE | 2025-02-03 16:15 | PROGRESS NOTE ---
Daily Progress Note Providers to CC ~ chief complaint, had an episode of high fever, still continued to have diarrhea, mild improvement Central Line/PICC still needed: No James-Non Protocol James Indications Met/Not Met: F/C Indications Not Met Antibiotic Timeout Antibiotic Ordered?: Yes MRSA Education MRSA Education Provided to pt: Yes Subjective As above Objective Vital Signs Date Time Temp Pulse Resp B/P (MAP) Pulse Ox O2 Delivery O2 Flow Rate FiO2 02/03/25 10:00 99.1 115 20 124/62 (82) 100 Room Air 02/02/25 20:00 0.0 Vital signs, stable ,afebrile. Pulse Oximetry reflects adequate oxygenation General: well developed, well nourished. Awake , alert, and oriented x4, resting comfortably in the bed, in no acute distress . Skin: Warm, dry, no pallor, no rash or petechiae. HEENT: Atraumatic, normocephalic, EOMI, anicteric sclera B; pink conjunctiva; PERRLA, normal oropharynx, moist oral and nasal mucosa. Tympanic membrane , nose , throat clear. Neck: Trachea midline. Supple, full range of motion, no JVD, bruit , hepatojugular reflex , lymphadenopathy or masses, or other lesions Cardiac: Regular rhythm, regular rate no murmurs, rubs, or gallops. Normal S1 and S2, no S3 noticed. PMI is normal. Respiratory: Equal breath sounds bilaterally, no tachypnea; lungs clear to auscultation bilaterally, no wheezing ,rub or rales, or crackles. Chest wall is symmetric and without deformity. No signs of trauma. Chest wall is nontender. No signs of respiratory distress. Resonance is normal upon percussion bilaterally. Gastrointestinal: Abdomen symmetric, non-distended, soft, tender to palpation infraumbilically, normal bowel sounds x4 quadrant, normoactive, no hepatosplenomegaly , no masses , no bruit, no flank pain bilaterally. No voluntary guarding, rebound, or rigidity. No tenderness to percussion. No pulsatile masses. Equal femoral pulses. No Jiménez's sign or McBurney point tenderness. Back; no CVA tenderness bilaterally, no deformities. Neck and back are without deformity as well. No tenderness noted on palpation of the spinous processes. Spinous processes are midline. Cervical, thoracic, and lumbar paraspinal muscles are not tender and are without spasm. Musculoskeletal: Extremities, normal range of motion, non-tender, muscle strength 5/5 x 4. Negative Homans signs bilaterally on lower extremity. Distal pulses full symmetrical, no clubbing, cyanosis , edema. Neurological: Speech is clear, alert, and oriented x 4. No motor or sensory deficit, deep tendon reflexes normal, cerebellar intact. Cranial nerves II-XII intact. Psych: Alert and or appropriate, normal affect. Vascular: Good distal pulses, which are equal x4; capillary refill less than 2 seconds. Lymphatic, no lymphadenopathy. Result Diagram: 02/03/25 0507 02/03/25 0507 Coagulation Studies Laboratory Tests Test 01/31/25 01:48 Prothrombin Time 11.4 SECONDS (9.0-12.0) INR International Normalized Ratio 1.1 INR Activated Partial Thromboplast Time 30 SECONDS (22-32) Coagulation Comments Problem\Assessment\Plan Assessment/plan Patient came in with 2 week mucous diarrhea after being diagnosed with UC in [facility] where she underwent colonoscopy and treated with steroid and mesalamine. C.diff resulted negative and started on empirical Zosyn for pancolitis and UTI. Spoke to GI Dr. Menchaca who recommends continue IVF and to await stool culture and to consider discontinuing abx if E. coli results positive, then contraindicated. Also recommends discontinuing steroid for now. Diagnosis # Pancolitis , today had five episodes of loose stool, nonbloody, today had an episode of high fever, we will start her [address] Whitley phone call appreciated # UTI # Sepsis 2/2 pancolitis and UTI - # Microcytic anemia - follow ferritin # Hypokalemia, on replacement protocol # Hx UC- continue mesalamine, hold steroid per GI recommendation # Hx E.coli # Hx C.diff, 2019 DVT gastropathy prophylaxis addressed Sepsis Screening Reassessment Date: Feb 03, 2025 Date of Service: Feb 03, 2025 Billing Provider: SONI MARROQUIN MD Common Visit Codes: [id number] INP/OBS CARE(HIGH) SONI MARROQUIN MD Feb 03, 2025 16:15
--- NOTE | 2025-02-03 16:33 | RADIOLOGY REPORT ---
Exam: DI ABDOMEN,SINGLE VIEW(KUB) Indication: sepsis; abdom pain Comparison: None Technique: 1 radiographic views of the abdomen. Findings: Moderate volume colonic stool. Nonobstructive bowel gas pattern noted. There is no definite evidence for pneumoperitoneum. No abnormal calcifications noted. Impression: Moderate volume colonic stool.
[2025-02-03] MEDS: CefTRIAXone/D5W-Rocephin 1gm 50 ML IV SCH (16:53)
[2025-02-03] MEDS: JUVEN Smoothie Arginine/Glut./Ca2+Bmb (Juven 19.3pkt) 240ml cup PO SCH (17:38)
[2025-02-03 18:00] VITALS: BP 88/50; PULSE 130; RESP 16; TEMP 100.6; O2SAT 97
[2025-02-03] MEDS: acetaminophen 325mg tablet PO PRN (19:48)
[2025-02-03] MEDS: dextrose 5%-water 1,000 ML IV SCH (19:55)
[2025-02-03 22:00] VITALS: BP 84/47; PULSE 118; RESP 18; TEMP 98; O2SAT 100
[2025-02-03 23:36] VITALS: BP 99/54; PULSE 92
[2025-02-04 06:00] VITALS: BP 102/65; PULSE 118; RESP 16; TEMP 98.2; O2SAT 100
[2025-02-04 07:28] LABS: BASOPHILS # (AUTO) 0.1 X10'3 (0-0.2); BASOPHILS % (AUTO) 0.6 % (0-1); EOSINOPHILS # (AUTO) 0.2 X10'3 (0-0.9); EOSINOPHILS % (AUTO) 1.6 % (0-6); LYMPHOCYTES # (AUTO) 1.2 X10'3 (1.1-4.8); MONOCYTES # (AUTO) 0.8 X10'3 (0-0.9)
[2025-02-04 07:31] LABS: HEMATOCRIT 32.2 % (35.0-45.0); HEMOGLOBIN 10.4 g/dl (12.0-16.0); LYMPHOCYTES % (AUTO) 12.4 % (21-51); MEAN CORPUSCULAR HEMOGLOBIN 23.2 PG (27.0-31.0); MEAN CORPUSCULAR HGB CONC 32.2 g/dL (33.0-36.5); MEAN CORPUSCULAR VOLUME 71.9 FL (78-98); MEAN PLATELET VOLUME 6.7 FL (7.4-10.4); MONOCYTES % (AUTO) 7.9 % (2-12); NEUTROPHILS # (AUTO) 7.5 X10'3 (1.8-7.7); NEUTROPHILS % (AUTO) 77.5 % (42-75); PLATELET COUNT 650 X10'3 (140-440); RED BLOOD COUNT 4.48 X10'6 (4.20-5.60); WHITE BLOOD COUNT 9.7 X10'3 (4.5-11.0)
[2025-02-04 07:44] LABS: ALANINE AMINOTRANSFERASE 8 U/L (12-78); ALBUMIN 2.2 G/DL (3.4-5.0); ALBUMIN/GLOBULIN RATIO 0.5 (1.1-1.5); ALKALINE PHOSPHATASE 102 IU/L (46-116); ANION GAP 4 (8-16); ASPARTATE AMINO TRANSFERASE 7 U/L (10-37); BILIRUBIN,TOTAL 0.4 MG/DL (0.1-1.0); BLOOD UREA NITROGEN 8 MG/DL (7-18); BUN/CREATININE RATIO 15.1 (10.0-20.0); CHLORIDE 99 MMOL/L (99-107); CREATININE 0.53 MG/DL (0.40-0.90); GLUCOSE 112 MG/DL (70-104); MAGNESIUM 1.9 MG/DL (1.5-2.4); POTASSIUM 3.6 MMOL/L (3.5-5.1); SODIUM 131 MMOL/L (135-145); TOTAL CARBON DIOXIDE 28.2 MMOL/L (24-32); eCRCL 94 ML/MIN; eGFR > 90 ML/MIN
[2025-02-04 10:00] VITALS: BP 104/76; PULSE 128; RESP 16; TEMP 98.9; O2SAT 99
[2025-02-04 13:58] LABS: PHOSPHORUS 3.7 MG/DL (2.3-4.5)
[2025-02-04 18:00] VITALS: BP 113/64; PULSE 116; RESP 14; TEMP 97.7; O2SAT 98
--- NOTE | 2025-02-04 18:03 | PROGRESS NOTE ---
Daily Progress Note Providers to CC ~ feels better today, states intermittently is anxious asking to be discharged home Central Line/PICC still needed: No James-Non Protocol James Indications Met/Not Met: F/C Indications Not Met Antibiotic Timeout Antibiotic Ordered?: Yes MRSA Education MRSA Education Provided to pt: Yes Subjective As above Objective Vital Signs Date Time Temp Pulse Resp B/P (MAP) Pulse Ox O2 Delivery O2 Flow Rate FiO2 02/04/25 16:20 16 02/04/25 10:00 98.9 128 104/76 (85) 99 Room Air 02/04/25 08:30 0.0 Vital signs, stable ,afebrile. Pulse Oximetry reflects adequate oxygenation. General: well developed, well nourished. Awake , alert, and oriented x4, resting comfortably in the bed, in no acute distress . Skin: Warm, dry, no pallor, no rash or petechiae. HEENT: Atraumatic, normocephalic, EOMI, anicteric sclera B; pink conjunctiva; PERRLA, normal oropharynx, moist oral and nasal mucosa. Tympanic membrane , nose , throat clear. Neck: Trachea midline. Supple, full range of motion, no JVD, bruit , hepatojugular reflex , lymphadenopathy or masses, or other lesions Cardiac: Regular rhythm, regular rate no murmurs, rubs, or gallops. Normal S1 and S2, no S3 noticed. PMI is normal. Respiratory: Equal breath sounds bilaterally, no tachypnea; lungs clear to auscultation bilaterally, no wheezing ,rub or rales, or crackles. Chest wall is symmetric and without deformity. No signs of trauma. Chest wall is nontender. No signs of respiratory distress. Resonance is normal upon percussion bilaterally. Gastrointestinal: Abdomen symmetric, non-distended, soft, mild tender to palpation periumbilically, normal bowel sounds x4 quadrant, normoactive, no hepatosplenomegaly , no masses , no bruit, no flank pain bilaterally. No voluntary guarding, rebound, or rigidity. No tenderness to percussion. No pulsatile masses. Equal femoral pulses. No Jiménez's sign or McBurney point tenderness. Back; no CVA tenderness bilaterally, no deformities. Neck and back are without deformity as well. No tenderness noted on palpation of the spinous processes. Spinous processes are midline. Cervical, thoracic, and lumbar paraspinal muscles are not tender and are without spasm. Musculoskeletal: Extremities, normal range of motion, non-tender, muscle strength 5/5 x 4. Negative Homans signs bilaterally on lower extremity. Distal pulses full symmetrical, no clubbing, cyanosis , edema. Neurological: Speech is clear, alert, and oriented x 4. No motor or sensory deficit, deep tendon reflexes normal, cerebellar intact. Cranial nerves II-XII intact. Psych: Alert and or appropriate, normal affect. Vascular: Good distal pulses, which are equal x4; capillary refill less than 2 seconds. Lymphatic, no lymphadenopathy. Result Diagram: 02/04/25 0707 02/04/25 0707 Coagulation Studies Laboratory Tests Test 01/31/25 01:48 Prothrombin Time 11.4 SECONDS (9.0-12.0) INR International Normalized Ratio 1.1 INR Activated Partial Thromboplast Time 30 SECONDS (22-32) Coagulation Comments Problem\Assessment\Plan Assessment/plan Patient came in with 2 week mucous diarrhea after being diagnosed with UC in [facility] where she underwent colonoscopy and treated with steroid and mesalamine. C.diff resulted negative and started on empirical Zosyn for pancolitis and UTI. Spoke to GI Dr. Menchaca who recommends continue IVF and to await stool culture and to consider discontinuing abx if E. coli results positive, then contraindicated. Also recommends discontinuing steroid for now. Diagnosis # Pancolitis , today had five episodes of loose stool, nonbloody, today had an episode of high fever, we will start her [address] Whitley phone call appreciated # UTI # Sepsis 2/2 pancolitis and UTI - # Microcytic anemia - follow ferritin # Hypokalemia, on replacement protocol Hyponatremia, on normal saline IV # Hx UC- continue mesalamine, hold steroid per GI recommendation # Hx E.coli # Hx C.diff, 2019 DVT gastropathy prophylaxis addressed Date of Service: Feb 04, 2025 Billing Provider: SONI MARROQUIN MD Common Visit Codes: [id number] INP/OBS CARE(HIGH) SONI MARROQUIN MD Feb 04, 2025 18:03
[2025-02-04] MEDS: normal saline 1000ml 1,000 ML IV SCH (19:01)
[2025-02-04 22:00] VITALS: BP 95/46; PULSE 120; RESP 18; TEMP 100.1; O2SAT 98
[2025-02-05 05:37] LABS: EOSINOPHILS # (AUTO) 0.3 X10'3 (0-0.9); HEMOGLOBIN 9.1 g/dl (12.0-16.0)
[2025-02-05 05:41] LABS: BASOPHILS # (AUTO) 0.1 X10'3 (0-0.2); BASOPHILS % (AUTO) 0.5 % (0-1); EOSINOPHILS % (AUTO) 2.2 % (0-6); LYMPHOCYTES # (AUTO) 2.9 X10'3 (1.1-4.8); LYMPHOCYTES % (AUTO) 22.8 % (21-51); MEAN CORPUSCULAR HEMOGLOBIN 23.2 PG (27.0-31.0); MEAN CORPUSCULAR HGB CONC 32.7 g/dL (33.0-36.5); MEAN CORPUSCULAR VOLUME 71.1 FL (78-98); MONOCYTES # (AUTO) 1.2 X10'3 (0-0.9); MONOCYTES % (AUTO) 9.4 % (2-12); NEUTROPHILS # (AUTO) 8.2 X10'3 (1.8-7.7); NEUTROPHILS % (AUTO) 65.1 % (42-75); PLATELET COUNT 681 X10'3 (140-440); RED BLOOD COUNT 3.94 X10'6 (4.20-5.60); RED CELL DISTRIBUTION WIDTH 19.2 % (11.5-14.5); WHITE BLOOD COUNT 12.6 X10'3 (4.5-11.0)
[2025-02-05 05:54] LABS: ALANINE AMINOTRANSFERASE 11 U/L (12-78); ALBUMIN/GLOBULIN RATIO 0.5 (1.1-1.5); ALKALINE PHOSPHATASE 98 IU/L (46-116); ANION GAP 8 (8-16); ASPARTATE AMINO TRANSFERASE 9 U/L (10-37); BILIRUBIN,TOTAL 0.2 MG/DL (0.1-1.0); BLOOD UREA NITROGEN 8 MG/DL (7-18); CALCIUM 7.9 MG/DL (8.5-10.1); CHLORIDE 103 MMOL/L (99-107); CREATININE 0.57 MG/DL (0.40-0.90); GLUCOSE 98 MG/DL (70-104); POTASSIUM 3.6 MMOL/L (3.5-5.1); SODIUM 137 MMOL/L (135-145); TOTAL CARBON DIOXIDE 26.2 MMOL/L (24-32); TOTAL PROTEIN 5.8 G/DL (6.4-8.2); eCRCL 87 ML/MIN; eGFR > 90 ML/MIN
[2025-02-05 06:00] VITALS: BP 107/60; PULSE 108; RESP 16; TEMP 98; O2SAT 99
[2025-02-05 07:00] VITALS: RESP 16; O2SAT 100
[2025-02-05 10:00] VITALS: BP 126/63; PULSE 98; RESP 16; TEMP 98.9; O2SAT 100
[2025-02-05] MEDS ORDERED: HYDR-3965 PO (10:18)
[2025-02-05] MEDS ORDERED: LORA-268 PO ×2 (10:18→10:21)
[2025-02-05 11:32] VITALS: RESP 16
--- NOTE | 2025-02-05 18:05 | DISCHARGE SUMMARY ---
Discharge Summary Providers to Was better today asking to be discharged home for family emergency reasons ~ Discharge Summary Assessment # Pancolitis # UTI # Sepsis 2/2 pancolitis and UTI - POA # Microcytic anemia - # Hypokalemia # Hx UC # Hx E.coli # Hx C.diff Admission Diagnosis: BLOODY STOOLS Admission Diagnosis Comment: # Pancolitis # UTI # Sepsis 2/2 pancolitis and UTI - POA # Microcytic anemia - # Hypokalemia # Hx UC # Hx E.coli # Hx C.diff Hospital Course DATE OF ADMISSION: January 31, 2025 DATE OF DISCHARGE: February 05, 2025 Discharge Diagnosis\Comment: # Pancolitis # UTI # Sepsis 2/2 pancolitis and UTI - POA # Microcytic anemia - # Hypokalemia # Hx UC # Hx E.coli # Hx C.diff Operations\Procedures: None Consultants: GI doctor Complications: None Condition on DC: Stable Discharge Summary: Patient came in with 2 week mucous diarrhea after being diagnosed with UC in [facility] where she underwent colonoscopy and treated with steroid and mesala mine. C.diff resulted negative and started on empirical Zosyn for pancolitis and UTI. Spoke to GI Dr. Menchaca who recommends continue IVF and to await stool culture and to consider discontinuing abx if E. coli results positive, then contraindicated. Also recommends discontinuing steroid for now. After admission patient was extensively evaluated and treated today she is feeling better asking to be discharged for family emergency reasons, I recommended to continue treatment as inpatient, patient refused to stay in the hospital elected to be discharged home for family reasons, medication reconciled follow-up PCP GI doctor in the morning, return to emergency department if condition worsens, today on physical exam Vital signs, stable ,afebrile. Pulse Oximetry reflects adequate oxygenation. General: well developed, well nourished. Awake , alert, and oriented x4, resting comfortably in the bed, in no acute distress . Skin: Warm, dry, no pallor, no rash or petechiae. HEENT: Atraumatic, normocephalic, EOMI, anicteric sclera B; pink conjunctiva; PERRLA, normal oropharynx, moist oral and nasal mucosa. Tympanic membrane , nose , throat clear. Neck: Trachea midline. Supple, full range of motion, no JVD, bruit , hepatojugular reflex , lymphadenopathy or masses, or other lesions Cardiac: Regular rhythm, regular rate no murmurs, rubs, or gallops. Normal S1 and S2, no S3 noticed. PMI is normal. Respiratory: Equal breath sounds bilaterally, no tachypnea; lungs clear to auscultation bilaterally, no wheezing ,rub or rales, or crackles. Chest wall is symmetric and without deformity. No signs of trauma. Chest wall is nontender. No signs of respiratory distress. Resonance is normal upon percussion bilaterally. Gastrointestinal: Abdomen symmetric, non-distended, soft, non-tender, normal bowel sounds x4 quadrant, normoactive, no hepatosplenomegaly , no masses , no bruit, no flank pain bilaterally. No voluntary guarding, rebound, or rigidity. No tenderness to percussion. No pulsatile masses. Equal femoral pulses. No Jiménez's sign or McBurney point tenderness. Back; no CVA tenderness bilaterally, no deformities. Neck and back are without deformity as well. No tenderness noted on palpation of the spinous processes. Spinous processes are midline. Cervical, thoracic, and lumbar paraspinal muscles are not tender and are without spasm. Musculoskeletal: Extremities, normal range of motion, non-tender, muscle strength 5/5 x 4. Negative Homans signs bilaterally on lower extremity. Distal pulses full symmetrical, no clubbing, cyanosis , edema. Neurological: Speech is clear, alert, and oriented x 4. No motor or sensory deficit, deep tendon reflexes normal, cerebellar intact. Cranial nerves II-XII intact. Psych: Alert and or appropriate, normal affect. Vascular: Good distal pulses, which are equal x4; capillary refill less than 2 seconds. Lymphatic, no lymphadenopathy. *Problems/Diagnosis: (1) UTI (urinary tract infection) Status: Acute Total Time Spent on D/C: > 30 Minutes Date of Service: Feb 05, 2025 Billing Provider: SONI MARROQUIN MD Common Visit Codes: [id number] DISCH DAY >30min Problem Qualifiers (1) UTI (urinary tract infection): Qualified Codes: N39.0 - Urinary tract infection, site not specified SONI MARROQUIN MD Feb 05, 2025 18:05
== END 2025-02-05 12:15 | disposition home or self-care (01) | DRG 720 ==
LOC: ER 19:50 → ED HOLD 01-31 00:55 → ORTHO 4S 01-31 02:07 → SUR 3N 02-05 07:10
PROVIDERS: ADMIT Internal Medicine Critical Care Medicine; ATTEND Nurse Practitioner Family
DX: A41.9 Sepsis, unspecified organism (principal); E44.0 Moderate protein-calorie malnutrition; K76.89 Other specified diseases of liver; R16.0 Hepatomegaly, not elsewhere classified; E87.1 Hypo-osmolality and hyponatremia; K51.00 Ulcerative (chronic) pancolitis without complications; N39.0 Urinary tract infection, site not specified; E87.6 Hypokalemia; D50.9 Iron deficiency anemia, unspecified; K52.9 Noninfective gastroenteritis and colitis, unspecified; Z79.899 Other long term (current) drug therapy; Z88.5 Allergy status to narcotic agent; Z68.1 Body mass index [BMI] 19.9 or less, adult
CPT/HCPCS: 36410; 36415; 71045; 74018; 74177; 76937; 80053; 80305; 81001; 81025; 82550; 82728; 82948; 83605; 83690; 83735; 83880; 83930; 84100; 84132; 84145; 84443; 84702; 85008; 85025; 85610; 85730; 87040; 87045; 87046; 87081; 87088; 87324; 87449; 89055; 93005; 96365; 99285; A6212; A6213; A6258; A6402; A6449; C1751; G0378; J0131; J0696; J1171; J2405; J2765; J3490; J7030; J7040; J7070; J7512; J7999; P9047; Q9967